=== PATIENT | male | born 1930 | race Caucasian/White ===

== ENCOUNTER 2021-02-26 19:34 | Inpatient (IN) | payer MEDICARE, BC ==
[2021-02-26 20:09] LABS: Glucose,Whole Blood 161 mg/dL (75-99)
[2021-02-26 20:48] LABS: Basophils # (A) 0.1 k/uL (0-0.2); Basophils % (A) 1 %; Eosinophils # (A) 0.3 k/uL (0-0.7); Eosinophils % (A) 3 %; HCT 41.9 % (39.0-53.0); HGB 13.4 gm/dL (13.0-17.5); Lymphocytes % (A) 18 %; MCH 28.7 pg (25.0-35.0); MCHC 31.9 g/dL (31.0-37.0); MCV 89.7 fL (80.0-100.0); Mean Platelet Volume 8.1; Monocytes # (A) 0.9 k/uL (0-1.0); Monocytes % (A) 8 %; Neutrophils # (A) 7.6 k/uL (1.3-7.7); Neutrophils % (A) 69 %; Platelet Count 266 k/uL (150-450); RBC 4.67 m/uL (4.30-5.90); RDW 13.9 % (11.5-15.5); WBC 11.1 k/uL (3.8-10.6)
[2021-02-26 20:56] LABS: Prothrombin Time 10.7 sec (9.0-12.0)
[2021-02-26 20:57] LABS: Partial Thromboplastin Time 25.9 sec (22.0-30.0)
[2021-02-26 20:58] LABS: Albumin 4.2 g/dL (3.5-5.0); Calcium 9.7 mg/dL (8.4-10.2); Potassium 4.4 mmol/L (3.5-5.1); Total Bilirubin 0.8 mg/dL (0.2-1.3); Total Protein 7.9 g/dL (6.3-8.2)
--- NOTE | 2021-02-26 21:16 | CT ---
EXAMINATION TYPE: CT brain wo con DATE OF EXAM: 02/26/2021 COMPARISON: None HISTORY: Neuro deficits, stroke suspected CT DLP: 1191.8 mGycm Automated exposure control for dose reduction was used. There is cerebral atrophy. There is no mass effect or midline shift. There is no sign of intracranial hemorrhage. Calvarium is intact. There is normal aeration of the mastoid sinuses. IMPRESSION: Mild atrophy. No acute intracranial abnormality.
--- NOTE | 2021-02-26 21:18 | XR ---
EXAMINATION TYPE: XR chest 2V DATE OF EXAM: 02/26/2021 COMPARISON: NONE HISTORY: Altered mental status TECHNIQUE: 2 view FINDINGS: There is pulmonary interstitial and airspace edema. There are chest leads. There is right c entral venous catheter with tip in the superior vena cava. IMPRESSION: There is pulmonary edema that could relate to heart failure or RDS.
--- NOTE | 2021-02-26 21:35 | CT ---
EXAMINATION TYPE: CT angio head neck DATE OF EXAM: 02/26/2021 COMPARISON: None HISTORY: Neuro deficits, stroke suspected CT DLP: 638.7 mGycm Automated exposure control for dose reduction was used. CONTRAST: Performed with IV Contrast, patient injected with 65 mL of Isovue 370. There are Three-D postprocessed images. There is extensive interstitial infiltrate in the upper lung conway. There is normal branching patter n of the great vessels on the aortic arch. There is arterial flow in both subclavian arteries. There is arterial flow in the common internal and external carotid arteries bilaterally. There is arterial flow in both vertebral arteries. There is subtotal occlusion of the proximal right internal carotid a rtery. More than 90% stenosis is seen. There is moderate plaque at the left carotid bifurcation and e stimated more than 90% stenosis as well. There is arterial flow in the vertebrobasilar artery system. There is arterial flow in the anterior m iddle and posterior cerebral arteries. There is no mass effect. There is no evidence of intracranial aneurysm or neovascularity. I see no evidence of intracranial hemodynamic arterial stenosis. There is normal enhancement of the venous sinuses. 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 Atherosclerotic vascular disease. Extensive pulmonary infiltrates. No significant angiographic intracranial abnormality.
--- NOTE | 2021-02-26 22:28 | ED ---
Neuro HPI - General Chief Complaint: Neuro Symptoms/Deficit Stated Complaint: possible stroke? Source: family Mode of arrival: wheelchair Limitations: no limitations - History of Present Illness Is the patient presenting with stroke symptoms?: Yes Initial Comments: 82-year-old male past medical history of diabetes, PE presents emergency department with complaints of vision changes and ataxia of his right upper extremity. He reports that the symptoms have been going on for the past 2 weeks intermittently and have gotten worse for the past 3 days. States that he has been dropping his drink cup and cannot use his cell phone due to the weakness in his right hand. He is right-hand dominant. Also reports to intermittent blurred vision no speech difficulties. Patient has had difficulty with ambulation. No history of strokes. No current symptoms at this time. Occasionally will have associated headache. Patient was on Coumadin up until 5 days ago. States he was taken off as he just recently had blood work for a TEG scan to evaluated whether he can come off of the coumadin. He denies any chest pain. No neck pain. No fevers. No other alleviating, precipitating or modifying factors - Related Data Home Medications: Home Medications Medication Instructions Recorded Confirmed Fluticasone Propion/Salmeterol 1 puff INHALATION RT-BID 02/26/21 02/26/21 [Wixela 250-50 Inhub] Loratadine [Claritin] 10 mg PO HS 02/26/21 02/26/21 Tamsulosin HCl [Flomax] 0.4 mg PO HS 02/26/21 02/26/21 Warfarin Sodium 7.5 mg PO HS 02/26/21 02/26/21 glipiZIDE [Glucotrol] 5 mg PO BID-W/MEALS 02/26/21 02/26/21 metFORMIN HCL [Glucophage] 500 mg PO BID 02/26/21 02/26/21 Allergies/Adverse Reactions: Allergies Allergy/AdvReac Type Severity Reaction Status Date / Time No Known Allergies Allergy Verified 02/26/21 21:33 Review of Systems ROS Statement: Those systems with pertinent positive or pertinent negative responses have been documented in the HPI. ROS Other: All systems not noted in ROS Statement are negative. General Exam Limitations: no limitations Stroke MDM - Lab Data Result diagrams: 02/26/21 20:39 02/26/21 20:39 Lab Results 02/26/21 02/26/21 02/26/21 Range/Units 20:07 20:39 20:39 WBC 11.1 H (3.8-10.6) k/uL RBC 4.67 (4.30-5.90) m/uL Hgb 13.4 (13.0-17.5) gm/dL Hct 41.9 (39.0-53.0) % MCV 89.7 (80.0-100.0) fL MCH 28.7 (25.0-35.0) pg MCHC 31.9 (31.0-37.0) g/dL RDW 13.9 (11.5-15.5) % Plt Count 266 (150-450) k/uL MPV 8.1 Neutrophils % 69 % Lymphocytes % 18 % Monocytes % 8 % Eosinophils % 3 % Basophils % 1 % Neutrophils # 7.6 (1.3-7.7) k/uL Lymphocytes # 2.0 (1.0-4.8) k/uL Monocytes # 0.9 (0-1.0) k/uL Eosinophils # 0.3 (0-0.7) k/uL Basophils # 0.1 (0-0.2) k/uL PT 10.7 (9.0-12.0) sec INR 1.0 (<1.2) APTT 25.9 (22.0-30.0) sec Sodium (137-145) mmol/L Potassium (3.5-5.1) mmol/L Chloride (98-107) mmol/L Carbon Dioxide (22-30) mmol/L Anion Gap mmol/L BUN (9-20) mg/dL Creatinine (0.66-1.25) mg/dL Est GFR (CKD-EPI)AfAm (>60 ml/min/1.73 sqM) Est GFR (CKD-EPI)NonAf (>60 ml/min/1.73 sqM) Glucose (74-99) mg/dL POC Glucose (mg/dL) 161 H (75-99) mg/dL POC Glu [employer] Administrator Developer ID Akshat Prajapati Calcium (8.4-10.2) mg/dL Total Bilirubin (0.2-1.3) mg/dL AST (17-59) U/L ALT (4-49) U/L Alkaline Phosphatase (38-126) U/L Troponin I (0.000-0.034) ng/mL Total Protein (6.3-8.2) g/dL Albumin (3.5-5.0) g/dL 02/26/21 02/26/21 Range/Units 20:39 20:39 WBC (3.8-10.6) k/uL RBC (4.30-5.90) m/uL Hgb (13.0-17.5) gm/dL Hct (39.0-53.0) % MCV (80.0-100.0) fL MCH (25.0-35.0) pg MCHC (31.0-37.0) g/dL RDW (11.5-15.5) % Plt Count (150-450) k/uL MPV Neutrophils % % Lymphocytes % % Monocytes % % Eosinophils % % Basophils % % Neutrophils # (1.3-7.7) k/uL Lymphocytes # (1.0-4.8) k/uL Monocytes # (0-1.0) k/uL Eosinophils # (0-0.7) k/uL Basophils # (0-0.2) k/uL PT (9.0-12.0) sec INR (<1.2) APTT (22.0-30.0) sec Sodium 137 (137-145) mmol/L Potassium 4.4 (3.5-5.1) mmol/L Chloride 102 (98-107) mmol/L Carbon Dioxide 23 (22-30) mmol/L Anion Gap 12 mmol/L BUN 24 H (9-20) mg/dL Creatinine 1.20 (0.66-1.25) mg/dL Est GFR (CKD-EPI)AfAm 62 (>60 ml/min/1.73 sqM) Est GFR (CKD-EPI)NonAf 54 (>60 ml/min/1.73 sqM) Glucose 168 H (74-99) mg/dL POC Glucose (mg/dL) (75-99) mg/dL POC Glu [employer] Administrator Developer ID Calcium 9.7 (8.4-10.2) mg/dL Total Bilirubin 0.8 (0.2-1.3) mg/dL AST 19 (17-59) U/L ALT 14 (4-49) U/L Alkaline Phosphatase 58 (38-126) U/L Troponin I <0.012 (0.000-0.034) ng/mL Total Protein 7.9 (6.3-8.2) g/dL Albumin 4.2 (3.5-5.0) g/dL - Medical Decision Making Upon arrival patient is placed into trauma 1. A thorough history and physical exam was performed. Patient has an NIH of 1 for some mild right upper extremity weakness. His onset of symptoms was greater than 3 days ago. IV is established laboratory studies were conducted. Patient is over for a CT of his head. CT angiography does demonstrate severe stenosis at the origin of the internal carotid arteries greater than 90%. The patient's reported symptoms a did recommend admission for vascular neurology consult. Spoke with Dr. Wen who agreed to admit the patient. Patient given an aspirin. He remained in st able condition awaiting a bed on the floor 02/26/21 22:28 EKG demonstrates sinus rhythm with a first-degree block. Rate of 74. MO interval 222. QRS 88. QTC of 424. Some baseline artifact. No acute ST segment elevations or depressions concerning for ischemia or infarction Past Medical History Past Medical History: Cancer, Diabetes Mellitus, Prostate Disorder, Pulmonary Embolus (PE) Additional Past Medical History / Comment(s): pulmonary fibrosis, allergies, bladder cancer History of Any Multi-Drug Resistant Organisms: None Reported Past Surgical History: Bladder Surgery Past Psychological History: Anxiety Smoking Status: Never smoker Past Alcohol Use History: None Reported Past Drug Use History: None Reported Course Vital Signs 02/26/21 02/26/21 02/26/21 19:50 21:30 22:00 Temperature 98.8 F Pulse Rate 88 67 78 Respiratory 20 18 18 Rate Blood Pressure 139/66 149/127 134/88 O2 Sat by Pulse 94 L 94 L 94 L Oximetry 02/26/21 23:45 Temperature Pulse Rate 70 Respiratory 18 Rate Blood Pressure 121/63 O2 Sat by Pulse 92 L Oximetry Disposition
[2021-02-27 06:15] LABS: Glucose,Whole Blood 108 mg/dL (75-99)
[2021-02-27] MEDS: INSULIN ASPART (NovoLOG) 100 UNIT/ML VIAL SQ SCH (06:36)
[2021-02-27] MEDS: SYMBICORT 80-4.5 MCG INHALER INHALATION SCH ×2 (07:14→19:38)
[2021-02-27] MEDS ORDERED: CLOPIDOGREL 75 MG TAB PO SCH (09:00)
[2021-02-27] MEDS ORDERED: ATORVASTATIN 40 MG TAB PO SCH (09:00)
[2021-02-27] MEDS ORDERED: CLOPIDOGREL 75 MG TAB PO STA (09:19)
--- NOTE | 2021-02-27 09:20 | P.CNNES ---
History of Present Illness Consult date: 02/27/21 Requesting physician: Roma Salvador Reason for Consult: acute visual disturbance, right hand weakness History of Present Illness: This is an 89-year-old right-handed dominant gentleman with history of diabetes mellitus, pulmonary fibrosis, bladder cancer, pulmonary embolism who presented emergency department on 02/26/2021 because of complaint of vision change and weakness of the right hand. Patient stated that his symptoms has been going on for the last 2 weeks intermittently and had noticed weakness of right hand recently. He noticed that he could not see out of the entire right eye lasting for few minutes about two weeks ago then resolved. Then later noticed he could not see out of half of left eye and last few hours possibly then resolved. In the past 3 days he noticed he is having weakness out of the right hand as well as numbness but has not resolved. He was dropping his drink and could not use his cell phone. He stated that he was on Coumadin up until 5 days ago prior to presented to the hospital and he had a TEG scan recently to evaluate whether he can come off of Coumadin. He could not tell me why he was on Coumadin. He states he has chronic weakness of lower extremities and uses a walker to get around. He denies any other neurological issues that is new otherwise. He denies being on antiplatelets or statin. He denies tobacco use, alcohol use or illicit drug use. Patient denies history of stroke in the past. Patient lives with his . Of note he states he had history of bladder cancer and PE in around 2016 and chemotherapy for his history of bladder cancer. Patient stated he was not sure of exact years of onset. Some other workup in the hospital consisted of: Initial vital signs as a blood pressure of 139/66, heart rate of 88, respiratory of 20, temperature of 98.8 Fahrenheit oral and pulse ox of 94% liters at room air. Initial white blood cell is 11.1 thousand otherwise the rest of CBC with pressure was unremarkable. Chemistry panel is the serum glucose is 168 otherwise the rest of the chem strip panel is unremarkable. Calcium is 9.7. De La Fuente virus is nondetected that. PT, PTT and the INR is within normal limits. CT of the head is reported as mild atrophy. No acute intracranial abnormality. I personally reviewed the CT of the head and I do not see any receipt any acute or subacute ischemia and there is no intraperitoneal hemorrhage noted. CT angiography of the head and neck was reported as there is severe stenosis of both internal carotid arteries that is estimated more than 90%. Atherosclerotic vascular disease. Extensive pulmonary infiltrates. Per the ED note the patient had the NIH stroke scale of 14 mild right upper extremity weakness. No IV TPA since onset of symptoms is more than 4.5 hours. Review of Systems Review of system: The 12 point system was reviewed and apparent positive and negative per HPI. Past Medical History Past Medical History: Cancer, Diabetes Mellitus, Prostate Disorder, Pulmonary Embolus (PE) Additional Past Medical History / Comment(s): pulmonary fibrosis, allergies, bladder cancer History of Any Multi-Drug Resistant Organisms: None Reported Past Surgical History: Bladder Surgery Past Psychological History: Anxiety Smoking Status: Never smoker Past Alcohol Use History: None Reported Past Drug Use History: None Reported Medications and Allergies Home Medications Medication Instructions Recorded Confirmed Type Fluticasone Propion/Salmeterol 1 puff INHALATION RT-BID 02/26/21 02/26/21 Histor y [Wixela 250-50 Inhub] Loratadine [Claritin] 10 mg PO HS 02/26/21 02/26/21 History Tamsulosin HCl [Flomax] 0.4 mg PO HS 02/26/21 02/26/21 History Warfarin Sodium 7.5 mg PO HS 02/26/21 02/26/21 History glipiZIDE [Glucotrol] 5 mg PO BID-W/MEALS 02/26/21 02/26/21 History metFORMIN HCL [Glucophage] 500 mg PO BID 02/26/21 02/26/21 History Allergies Allergy/AdvReac Type Severity Reaction Status Date / Time No Known Allergies Allergy Verified 02/26/21 21:33 Physical Examination - Vital Signs Vital Signs: Vital Signs Temp Pulse Resp BP Pulse Ox 02/27/21 07:14 94 L 02/27/21 06:34 97.7 F 57 L 15 99/44 98 02/27/21 05:00 97.4 F L 69 20 125/61 93 L 02/26/21 23:45 70 18 121/63 92 L 02/26/21 22:00 78 18 134/88 94 L 02/26/21 21:30 67 18 149/127 94 L 02/26/21 19:50 98.8 F 88 20 139/66 94 L Intake and Output 02/26/21 02/27/21 02/27/21 22:59 06:59 14:59 Other: Weight 94.347 kg GENERAL: The patient is lying in bed and is not in acute distress. CHEST: The heart rate is regular rate rhythm. No murmurs to auscultation. No carotid bruit bilaterally. LUNG: Clear to auscultation bilaterally no wheezing noted throughout. Not labored breathing. ABDOMEN/GI: Bowel sounds present in all 4 quadrants. No tenderness to palpation throughout. NEUROLOGICAL: Higher mental function: The patient is awake, alert, oriented to self, place and time. Patient is following commands. No aphasia and no neglect. Cranial nerves: The pupils are round, equal and reactive to light. Visual conway: Right upper quadrant defect to confrontation (done twice) over the right eye. Extraocular movement is intact no nystagmus is noted. Facial sensation is normal to touch throughout. The facial strength is normal throughout. Hearing is moderately to severely decreased bilaterally to hand rub. Tongue is midline and moved [id number] without any difficulty. No dysarthria is noted. Shoulder shrug is normal bilaterally. Motor: The strength: Right hand is 4+. Otherwise rest of uppers are 5/5. Lowers is able to raise above gravity and no focality (has chronic weakness and uses walker). Normal tone and bulk. Cerebellum: Normal finger to nose bilaterally. Sensation: Sensation is normal to touch throughout. Reflexes (right/left):2+ throughout. Ankles are 1+. Plantars are mute bilaterally. Results - Laboratory Findings CBC and BMP: 02/26/21 20:39 02/26/21 20:39 Abnormal Lab Findings: Abnormal Labs 02/26/21 02/26/21 02/26/21 20:07 20:39 20:39 WBC 11.1 H BUN 24 H Glucose 168 H POC Glucose (mg/dL) 161 H 02/27/21 06:13 WBC BUN Glucose POC Glucose (mg/dL) 108 H Assessment and Plan Assessment: Right hand weakness over past 3 days and transient visual loss (first right eye then left eye) about 2 weeks ago: Due to acute to subacute ischemic stroke. Etiology is symptomatic bilateral carotid. No IV tpa since onset >4.5 (patient stated he had symptoms for past 2 weeks). 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 I loaded the patient on Plavix 300mg once and Vascular surgery started the patient on Plavix 75mg daily. Patient to be on dual antiplatelets of aspirin 325 and Plavix 75 mg daily for now. Patient was also started Lipitor 40 mg daily and I increase it to 80 mg daily. I ordered MRI of the brain and 2-D echo and carotid duplex. Vascular surgery team is consulted Ordered TSH and hemoglobin A1c. Lipid panels ordered and is pending PT, OT and FINANCIAL SALES REPRESENTATIVE is consulted that. Continue neuro checks Patient is on the cardiac monitoring We'll defer the rest of medical management to the primary team. Plan is discussed with the patient, vascular surgery team and his nurse. Thank you for the consultation. José Miguel Kerr M.D. Neuro-Hospitalist Time with Patient: Greater than 30
--- NOTE | 2021-02-27 09:22 | US ---
EXAMINATION TYPE: US carotid duplex BILAT DATE OF EXAM: 02/27/2021 COMPARISON: NONE CLINICAL HISTORY: carotid stenosis. Right side weakness, vision changes EXAM MEASUREMENTS: RIGHT: Peak Systolic Velocity (PSV) cm/sec ----- Right CCA: 73.4 ----- Right ICA: 233 ----- Right ECA: 164 ICA/CCA ratio: 3.2 RIGHT: End Diastole cm/sec ----- Right CCA: 12.3 ----- Right ICA: 48.5 ----- Right ECA: 0.0 LEFT: Peak Systolic Velocity (PSV) cm/sec ----- Left CCA: 55.5 ----- Left ICA: 244 ----- Left ECA: 328 ICA/CCA ratio: 4.4 LEFT: End Diastole cm/sec ----- Left CCA: 6.7 ----- Left ICA: 74.8 ----- Left ECA: 0.0 VERTEBRALS (direction of flow): Right Vertebral: Unable to visualize Left Vertebral: Antegrade Rhythm: Normal Heterogeneous plaque bilaterally with significant elevated velocities bilaterally turbulent flow is evident. Velocity measurements suggest stenosis. 70% bilateral carotid bifurcations. IMPRESSION: 1. Severe bilateral internal carotid artery stenosis at the bifurcations. Stenosis greater than 70% b ilaterally. Criteria for Assigning % of Stenosis / Diameter reduction (Estimation based on the indirect measurements of the internal carotid artery velocities (ICA PSV). 1. Normal (no stenosis)=ICA PSV < 125 cm/s: ratio < 2.0: ICA EDV<40 cm/s. 2. Less than 50% stenosis=ICA PSV < 125 cm/s: ratio < 2.0: ICA EDV<40 cm/s. 3. 50 to 69% stenosis=ICA PSV of 125 to 230 cm/s: ration 2.0 ? 4.0: ICA EDV 40-100 cm/s. 4. Greater than 70% stenosis to near occlusion= ICA PSV > 230 cm/s: ratio > 4.0: ICA EDV > 100 cm/s. 5. Near occlusion= ICA PSV velocities may be low or undetectable: variable ratio and ICA EDV. 6. Total occlusion=unable to detect flow.
[2021-02-27] MEDS: ATORVASTATIN 80 MG TAB PO SCH (10:06)
[2021-02-27] MEDS: HEPARIN SODIUM,PORCINE/PF 5,000 UNIT/0.5 ML SYRINGE SQ SCH (10:06)
--- NOTE | 2021-02-27 10:39 | HP ---
HISTORY AND PHYSICAL This is an 89-year-old white male who presents to the emergency room with complaints of visual changes and in the right upper extremity, worsened over the past 2 weeks. He is dropping things he normally and usually does not drop. He is [id number]. Intermittent blurred vision. No speech difficulties. The patient was on Coumadin until 5 days ago when he was taken off. He had some blood work for a tagged scan to see if he could come off Coumadin. Denies any fever or chills. Home medicines 10 mg daily, 250/50, DuoNeb b.i.d., Flomax 0.4 daily, warfarin 7.5 daily, glipizide 5 mg b.i.d., metformin 500 b.i.d. ALLERGIES: NEGATIVE. REVIEW OF SYSTEMS: Fourteen-point review of systems otherwise negative. Labs are reviewed. CTA angiography of the neck shows over 90% stenosis bilateral internal carotid arteries. ASSESSMENT: 1. Transient ischemic attack. 2. Severe carotid stenosis. 3. First-degree heart block. 4. Diabetes mellitus. 5. Hypertension. Get Vascular Surgery to see him as well as Neurology and Cardiology for TIA and carotid stenosis. Continue current home medications for BPH, etc. Diabetes Accu-Chek protocol. Prognosis guarded. MMODL / IJN: [id number] /
--- NOTE | 2021-02-27 10:42 | ECHOF ---
Referral Reason:stroke MEASUREMENTS -------- HEIGHT: 182.9 cm WEIGHT: 94.3 kg BP: 99/44 RVIDd: 2.6 cm (< 3.3) IVSd: 1.2 cm (0.6 - 1.1) LVIDd: 3.8 cm (3.9 - 5.3) LVPWd: 1.3 cm (0.6 - 1.1) IVSs: 1.5 cm LVIDs: 2.5 cm LVPWs: 1.3 cm LAESV Index (A-L): 22.95 ml/m Ao Diam: 3.8 cm (2.0 - 3.7) AV Cusp: 1.3 cm (1.5 - 2.6) MV EXCURSION: 14.631 mm (> 18.000) MV EF SLOPE: 38 mm/s (70 - 150) EPSS: 1.4 cm MV E Kyaw: 0.85 m/s MV DecT: 236 ms MV A Kyaw: 1.00 m/s MV E/A Ratio: 0.85 AR PHT: 672 ms RAP: 5.00 mmHg RVSP: 39.55 mmHg FINDINGS -------- Sinus rhythm. This was a technically adequate study. The left ventricular size is normal. There is mild concentric left ventricular hypertrophy. Overa ll left ventricular systolic function is normal with, an EF between 55 - 60 %. The right ventricle is normal in size. Normal LA size by volume 22+/-6 ml/m2. The right atrial size is normal. Interatrial and interventricular septum intact. There is moderate aortic valve sclerosis. There is mild aortic regurgitation. There is no evidenc e of aortic stenosis. There is trace mitral regurgitation. Mild tricuspid regurgitation present. There is borderline pulmonary artery hypertension. The righ t ventricular systolic pressure, as measured by Doppler, is 39.55mmHg. There is no pulmonic regurgitation present. 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 Echo free space represents a pericardial fat pad. There is no pericardial effusion. CONCLUSIONS -------- 1. The left ventricular size is normal. 2. There is mild concentric left ventricular hypertrophy. 3. Overall left ventricular systolic function is normal with, an EF between 55 - 60 %. 4. There is moderate aortic valve sclerosis. 5. There is mild aortic regurgitation. 6. There is trace mitral regurgitation. 7. Mild tricuspid regurgitation present. 8. There is borderline pulmonary artery hypertension. 9. The right ventricular systolic pressure, as measured by Doppler, is 39.55mmHg. 10. The aortic root is dilated measuring {3.8 cm}. AUTOMOTIVE WHOLESALE PARTS ADVISOR: Alice Antonio RDCS
--- NOTE | 2021-02-27 13:43 | P.GSCN ---
<Jenny Rawls - Last Filed: 02/27/21 13:31> History of Present Illness Consult date: 02/27/21 Reason for Consult: Carotid stenosis Requesting physician: Roma Salvador History of present illness: This is a pleasant 82-year-old male with a past medical history of diabetes mellitus, pulmonary fibrosis, bladder cancer, pulmonary embolism who had presented to the emergency department yesterday with complaints of vision changes and weakness of the right hand. Patient states his symptoms have been going on for the last 2 weeks intermittently with right handed weakness more recently. He states that he first started with his right eye that had been lasting for a few minutes where he could not see out of it and then it had resolved. This had been going on for the last 2 weeks. He then states he could not see on a half of his left eye that had lasted for a few hours and then resolve. Over the past 3 days he is becoming more weakness in his right upper extremity with numbness and tingling which has not resolved at this time. He w as having difficulty with holding his cell phone and his he does admit to taking Coumadin which he stopped 5 days ago but he is unsure why he is been on Coumadin. He denies tobacco use or any illicit drug use. He denies any previous history of stroke and no similar symptoms in the past. He has not been following anybody for his carotid arteries. He had a CT of the head that was reported as mild atrophy. With no acute intracranial abnormality. He also had a CT angiogram gram of the head and neck with reported severe stenosis of both internal carotid arteries estimated more than 90%. Arthrosclerotic vascular disease. Extensive pulmonary infiltrates. He is not having any visual disturb ances, he continues to have right upper extremity weakness. He denies any shortness of breath or chest pain, nausea vomiting or abdominal pain. Review of Systems A 14 point review systems was completed all pertinent positives and negatives as stated in the HPI Past Medical History Past Medical History: Cancer, Diabetes Mellitus, Prostate Disorder, Pulmonary Embolus (PE) Additional Past Medical History / Comment(s): pulmonary fibrosis, allergies, bladder cancer History of Any Multi-Drug Resistant Organisms: None Reported Past Surgical History: Bladder Surgery Past Psychological History: Anxiety Smoking Status: Never smoker Past Alcohol Use History: None Reported Past Drug Use History: None Reported Medications and Allergies Home Medications Medication Instructions Recorded Confirmed Type Fluticasone Propion/Salmeterol 1 puff INHALATION RT-BID 02/26/21 02/26/21 History [Wixela 250-50 Inhub] Loratadine [Claritin] 10 mg PO HS 02/26/21 02/26/21 History Tamsulosin HCl [Flomax] 0.4 mg PO HS 02/26/21 02/26/21 History Warfarin Sodium 7.5 mg PO HS 02/26/21 02/26/21 History glipiZIDE [Glucotrol] 5 mg PO BID-W/MEALS 02/26/21 02/26/21 History metFORMIN HCL [Glucophage] 500 mg PO BID 02/26/21 02/26/21 History Allergies Allergy/AdvReac Type Severity Reaction Status Date / Time No Known Allergies Allergy Verified 02/26/21 21:33 Surgical - Exam Vital Signs Temp Pulse Resp BP Pulse Ox 98.8 F 88 20 139/66 94 L 02/26/21 19:50 02/26/21 19:50 02/26/21 19:50 02/26/21 19:50 02/26/21 19:50 General appearance: The patient is alert, oriented, appears in no acute distress. HET: Head is normocephalic and atraumatic. Pupils are equal and reactive. Neck: Supple without lymphadenopathy. Trachea midline. Heart: S1 S2. Regular rate and rhythm. Lungs: No crackles or wheezes are heard. Abdomen: Soft, nontender, nondistended. Extremities: Normal skin color and turgor. Neurological: She is alert and oriented 3. He has facial symmetry, speech is fluent, he is able to answer questions appropriately and follow commands. He does have some right upper extremity weakness especially in his grass. Results - Labs 02/26/21 20:39 02/26/21 20:39 Abnormal Lab Results - Last 24 Hours (Table) 02/26/21 02/26/21 02/26/21 Range/Units 20:07 20:39 20:39 WBC 11.1 H (3.8-10.6) k/uL BUN 24 H (9-20) mg/dL Glucose 168 H (74-99) mg/dL POC Glucose (mg/dL) 161 H (75-99) mg/dL 02/27/21 Range/Units 06:13 WBC (3.8-10.6) k/uL BUN (9-20) mg/dL Glucose (74-99) mg/dL POC Glucose (mg/dL) 108 H (75-99) mg/dL Diabetes panel 02/26/21 Range/Units 20:39 Sodium 137 (137-145) mmol/L Potassium 4.4 (3.5-5.1) mmol/L Chloride 102 (98-107) mmol/L Carbon Dioxide 23 (22-30) mmol/L BUN 24 H (9-20) mg/dL Creatinine 1.20 (0.66-1.25) mg/dL Glucose 168 H (74-99) mg/dL Calcium 9.7 (8.4-10.2) mg/dL AST 19 (17-59) U/L ALT 14 (4-49) U/L Alkaline Phosphatase 58 (38-126) U/L Total Protein 7.9 (6.3-8.2) g/dL Albumin 4.2 (3.5-5.0) g/dL Calcium panel 02/26/21 Range/Units 20:39 Calcium 9.7 (8.4-10.2) mg/dL Albumin 4.2 (3.5-5.0) g/dL Pituitary panel 02/26/21 Range/Units 20:39 Sodium 137 (137-145) mmol/L Potassium 4.4 (3.5-5.1) mmol/L Chloride 102 (98-107) mmol/L Carbon Dioxide 23 (22-30) mmol/L BUN 24 H (9-20) mg/dL Creatinine 1.20 (0.66-1.25) mg/dL Glucose 168 H (74-99) mg/dL Calcium 9.7 (8.4-10.2) mg/dL Adrenal panel 02/26/21 Range/Units 20:39 Sodium 137 (137-145) mmol/L Potassium 4.4 (3.5-5.1) mmol/L Chloride 102 (98-107) mmol/L Carbon Dioxide 23 (22-30) mmol/L BUN 24 H (9-20) mg/dL Creatinine 1.20 (0.66-1.25) mg/dL Glucose 168 H (74-99) mg/dL Calcium 9.7 (8.4-10.2) mg/dL Total Bilirubin 0.8 (0.2-1.3) mg/dL AST 19 (17-59) U/L ALT 14 (4-49) U/L Alkaline Phosphatase 58 (38-126) U/L Total Protein 7.9 (6.3-8.2) g/dL Albumin 4.2 (3.5-5.0) g/dL - Imaging Comments: As stated in the HPI Carotid ultrasound shows right ICA PSV 233, ICA/CCA ratio 3.2 left ICA PSV 244 ICA/CCA ratio 4.4 with reported severe bilateral internal carotid artery stenosis at the bifurcations. Stenosis greater than 70% bilaterally Assessment and Plan Assessment: 1. Visual changes 2. Right upper extremity weakness 3. Severe symptomatic bilateral ICA stenosis, estimated greater than 90% bilaterally per CT angiogram Plan: 1. Recommend aspirin, Plavix, statin 2. Requesting discussed be made for CT angiogram head and neck 3. Agree with ordering carotid ultrasound 4. Was discussed with patient recommendation for vascular surgical intervention on carotid arteries likely TCAR, further recommendations forthcoming Thank you for this consultation, and allowing us take part in the plan of care of your patient during his hospital stay. The impression and plan of care has been dictated as directed. Dr. Ramirez I performed a history and examination of this patient, discussed the same with the dictator. I agree with the dictator's note ,documented as a scribe. Any additional findings or plans will be noted. <Ras Ramirez - Last Filed: 02/27/21 19:06> Surgical - Exam Vital Signs Temp Pulse Resp BP Pulse Ox 98.8 F 88 20 139/66 94 L 02/26/21 19:50 02/26/21 19:50 02/26/21 19:50 02/26/21 19:50 02/26/21 19:50 Results - Labs 02/26/21 20:39 02/26/21 20:39 Abnormal Lab Results - Last 24 Hours (Table) 02/26/21 02/26/21 02/26/21 Range/Units 20:07 20:39 20:39 WBC 11.1 H (3.8-10.6) k/uL BUN 24 H (9-20) mg/dL Glucose 168 H (74-99) mg/dL POC Glucose (mg/dL) 161 H (75-99) mg/dL Hemoglobin A1c (0.0-6.0) % 02/26/21 02/27/21 Range/Units 20:39 06:13 WBC (3.8-10.6) k/uL BUN (9-20) mg/dL Glucose (74-99) mg/dL POC Glucose (mg/dL) 108 H (75-99) mg/dL Hemoglobin A1c 7.6 H (0.0-6.0) % Diabetes panel 02/26/21 02/26/21 Range/Units 20:39 20:39 Sodium 137 (137-145) mmol/L Potassium 4.4 (3.5-5.1) mmol/L Chloride 102 (98-107) mmol/L Carbon Dioxide 23 (22-30) mmol/L BUN 24 H (9-20) mg/dL Creatinine 1.20 (0.66-1.25) mg/dL Glucose 168 H (74-99) mg/dL Hemoglobin A1c 7.6 H (0.0-6.0) % Calcium 9.7 (8.4-10.2) mg/dL AST 19 (17-59) U/L ALT 14 (4-49) U/L Alkaline Phosphatase 58 (38-126) U/L Total Protein 7.9 (6.3-8.2) g/dL Albumin 4.2 (3.5-5.0) g/dL Thyroid panel 02/26/21 Range/Units 20:39 TSH 3.430 (0.465-4.680) mIU/L Calcium panel 02/26/21 Range/Units 20:39 Calcium 9.7 (8.4-10.2) mg/dL Albumin 4.2 (3.5-5.0) g/dL Pituitary panel 02/26/21 02/26/21 Range/Units 20:39 20:39 Sodium 137 (137-145) mmol/L Potassium 4.4 (3.5-5.1) mmol/L Chloride 102 (98-107) mmol/L Carbon Dioxide 23 (22-30) mmol/L BUN 24 H (9-20) mg/dL Creatinine 1.20 (0.66-1.25) mg/dL Glucose 168 H (74-99) mg/dL Calcium 9.7 (8.4-10.2) mg/dL TSH 3.430 (0.465-4.680) mIU/L Adrenal panel 02/26/21 Range/Units 20:39 Sodium 137 (137-145) mmol/L Potassium 4.4 (3.5-5.1) mmol/L Chloride 102 (98-107) mmol/L Carbon Dioxide 23 (22-30) mmol/L BUN 24 H (9-20) mg/dL Creatinine 1.20 (0.66-1.25) mg/dL Glucose 168 H (74-99) mg/dL Calcium 9.7 (8.4-10.2) mg/dL Total Bilirubin 0.8 (0.2-1.3) mg/dL AST 19 (17-59) U/L ALT 14 (4-49) U/L Alkaline Phosphatase 58 (38-126) U/L Total Protein 7.9 (6.3-8.2) g/dL Albumin 4.2 (3.5-5.0) g/dL Assessment and Plan Plan: Reviewed CTA with patient as well as neurology. Patient will require intervention first for his left carotid followed by his right due to the fact that he is symptomatic from both. He is right handed and recently had weakness of the right hand and therefore we will perform the left carotid first. He was also started on plavix and aspirin which he will continue up to his surgery which will likely be next Friday.
--- NOTE | 2021-02-27 14:45 | MR ---
"EXAMINATION TYPE: MR brain wo con DATE OF EXAM: 02/27/2021 COMPARISON: CT brain 02/26/2021 HISTORY: Visual disturbance. Stroke CONTRAST: Performed utilizing 0 mL intravenous Gadavist gadolinium contrast. TECHNIQUE: Multiplanar, multiecho imaging on a 3.0 Susy magnet is performed through the brain. Stud y is not performed within 24 hours of arrival to the hospital. The craniovertebral junction is normal. The pituitary is normal. Diffusion-weighted imaging is performed. There are scattered cortical hyperintensities within the le ft occipital lobe. A more focal area is along the cortex of the occipital lobe gyrus. Scattered punct ate hyperintensities are within the posterior left parietal cortex. Findings can be compatible with a cute cortical infarcts. Consider venous infarcts within the differential There are some additional hyperintensities within the deep white matter identified on the inversion r ecovery weighted sequences. This may be more chronic white matter ischemic changes. There is some additional mild periventricular white matter hyperintensity which is nonspecific but co uld be related to chronic white matter ischemic changes. Ventricles and sulci are prominent for the patient age. IMPRESSIONS: 1. Scattered acute cortical infarcts within the left occipital and posterior left parietal lobes. 2. Mild chronic appearing periventricular white matter ischemic change with atrophy. A [place] level critical message alert has been initiated for Prashant Live MD via the [employer] 36 0 | Critical Results System on 02/27/2021 2:43 PM. This message alert has been sent to Prashant Live MD via the preferences provided by the clinician for the receipt of Radiology Critical Findings. [facility] ID [id number]."
[2021-02-27] MEDS ORDERED: TAMSULOSIN 0.4 MG CAP.ER.24H PO SCH (21:00)
[2021-02-27] MEDS ORDERED: LORATADINE 10 MG TAB PO SCH (21:00)
[2021-02-28 00:22] LABS: Glucose,Whole Blood 137 mg/dL (75-99)
[2021-02-28] MEDS: INSULIN ASPART (NovoLOG) 100 UNIT/ML VIAL SQ SCH ×3 (00:22→11:09)
[2021-02-28] MEDS: HEPARIN SODIUM,PORCINE/PF 5,000 UNIT/0.5 ML SYRINGE SQ SCH ×2 (00:34→11:10)
[2021-02-28] MEDS: SYMBICORT 80-4.5 MCG INHALER INHALATION SCH (08:53)
[2021-02-28] MEDS ORDERED: ASPIRIN 325 MG TAB PO SCH (09:00)
[2021-02-28] MEDS ORDERED: CLOPIDOGREL 75 MG TAB PO SCH (09:00)
--- NOTE | 2021-02-28 10:43 | CONS ---
CONSULTATION CHIEF COMPLAINT: Sudden onset of visual disturbances. Prashant is an 89-year-old gentleman with history of pulmonary fibrosis, pulmonary embolism and tjc-zngjzvo-rjqndeccj diabetes who presented to hospital with sudden loss of vision in the right eye and subsequently in the left eye. He has not been taking good care of himself, as his son is admitted to [facility] with severe COVID and is not doing particularly well. His vision has improved since coming to hospital, and at the time of my evaluation he states that it is almost back to normal. The patient is on Coumadin because of history of pulmonary embolism, but the INR was subtherapeutic at 1 on his presentation. Troponin is negative and the coronavirus test is also negative. He was found to have bilateral carotid stenosis and has since been evaluated by a vascular surgeon. He does not have any other focal neurological deficits. He denies chest pain, has stable shortness of breath and is currently on home O2. PAST MEDICAL HISTORY: Significant for pulmonary embolism, history of bladder cancer, dku-[id number]-xojvgmatd diabetes. MEDICATIONS: Medications at home include Coumadin, Flomax 0.4 mg daily, Claritin, fluticasone, Glucophage 500 b.i.d., Glucotrol 5 b.i.d. ALLERGIES: There are NO KNOWN DRUG ALLERGIES. FAMILY HISTORY: Negative for premature coronary artery disease. SOCIAL HISTORY: Negative for smoking, EtOH abuse or drug abuse. REVIEW OF SYSTEMS: HEENT is unremarkable. CARDIAC: As described above. RESPIRATORY: Negative. GI: Negative. GENITOURINARY: Negative. ALLERGY/IMMUNOLOGY: Negative. SKIN: Negative. MUSCULOSKELETAL: Significant for arthritis. PSYCHOSOCIAL: Negative. ENDOCRINE: Negative. DERMATOLOGY: Negative. CONSTITUTIONAL: Negative. ONCOLOGICAL: Negative. ANIMAL GROOMER: Significant for hearing impairment. PHYSICAL EXAMINATION: Heart rate is 77 beats per minute. Blood pressure is , respiratory rate is 16. Oxygen saturation is 93% on 3 L. There is no jugular venous distention. Carotid upstroke is diminished. There is no bruit. Chest exam reveals diminished air entry at the bases. Heart exam reveals first and second heart sounds, systolic murmur at the apex. Abdomen is soft. Examination of extremities did not reveal any edema. Peripheral pulses are palpable. An echocardiogram on this admission revealed normal LV systolic function with mild aortic regurgitation and mild pulmonary hypertension. EKG shows sinus rhythm, first- degree AV block and nonspecific ST-T wave changes. Carotid duplex study showed severe bilateral internal carotid artery stenosis. An MRI of the brain showed scattered acute cortical infarct within the left occipital and left parietal lobes. ASSESSMENT: 1. Cerebrovascular accident with loss of vision. 2. Severe bilateral carotid stenosis. 3. History of pulmonary embolism. 4. History of [id number] diabetes. PLAN: Patient is currently being treated with aspirin, Plavix and Lipitor, which we will continue. It is unclear if patient still needs the Coumadin that was started many years ago for pulmonary embolism. We will follow the patient with interest throughout his stay. Because of problems with the [employer] system this morning, we are not able to use it; hence the spot washer system is being he used. MMODL / IJN: [id number] /
[2021-02-28] MEDS: ATORVASTATIN 80 MG TAB PO SCH (10:48)
[2021-02-28 11:01] LABS: Glucose,Whole Blood 254 mg/dL (75-99)
--- NOTE | 2021-02-28 11:08 | P.PN ---
Subjective Progress Note Date: 02/28/21 The patient is seen at bedside and feels he is somewhat better compared to yesterday. He continues to have weakness of the right hand and feels having dexterity issues with the right hand. He feels numbness over the right hand is improving. Otherwise denies any new neurological problems. Objective - Vital Signs Vital signs: Vital Signs Temp 97.1 F L 02/28/21 10:00 Pulse 72 02/28/21 10:00 Resp 16 02/28/21 10:00 BP 113/60 02/28/21 10:00 Pulse Ox 95 02/28/21 10:00 Intake & Output 02/27/21 02/28/21 02/28/21 18:59 06:59 18:59 Weight 94.347 kg - Exam GENERAL: The patient is lying in bed and is not in acute distress. NEUROLOGICAL: Higher mental function: The patient is awake, alert, oriented to self, place and time. Patient is following commands. No aphasia and no neglect. Cranial nerves: The pupils are round, equal and reactive to light. Visual conway: are full to confrontation throughout. Extraocular movement is intact no nystagmus is noted. Facial sensation is normal to touch throughout. The facial strength is normal throughout. Hearing is moderately to severely decreased bilaterally to hand rub. Tongue is midline and moved [id number] without any difficulty. No dysarthria is noted. Shoulder shrug is normal bilaterally. Motor: The strength: Right hand is 4+. Having dexterity problems with right hand. Otherwise rest of uppers are 5/5. Lowers is able to raise above gravity and no focality (has chronic weakness and uses walker). Normal tone and bulk. Cerebellum: Normal finger to nose bilaterally. Sensation: Sensation is normal to touch throughout. Reflexes (right/left):2+ throughout. Ankles are 1+. Plantars are mute bilaterally. WORK-UP: CT of the head is reported as mild atrophy. No acute intracranial abnormality. I personally reviewed the CT of the head and I do not see any receipt any acute or subacute ischemia and there is no intraperitoneal hemorrhage noted. CT angiography of the head and neck was reported as there is severe stenosis of both internal carotid arteries that is estimated more than 90%. Atherosclerotic vascular disease. Extensive pulmonary infiltrates. Carotid duplex is reported as severe bilateral internal carotid artery stenosis at the bifurcations. Stenosis greater than 70%. MRI of the brain is reported as scattered acute cortical infarct within the left occipital and posterior left parietal lobe. Mild chronic-appearing periventricular white matter ischemic changes with atrophy. 2-D echo was reported as mild concentric liver described atrophy. Ejection fraction of 55-60%. Moderate aortic valve sclerosis at. Normal left atrial size by volume. Hemoglobin A1c is 7.6. TSH is 3.43. - Labs CBC & Chem 7: 02/26/21 20:39 02/26/21 20:39 Labs: Abnormal Lab Results - Last 24 Hours (Table) 02/28/21 Range/Units 00:21 POC Glucose (mg/dL) 137 H (75-99) mg/dL Assessment and Plan Assessment: * Acute to subacute ischemic stroke over the left occipital and parietal (has Right hand weakness over past 3 days and transient visual loss (first right eye then left eye) about 2 weeks ago): Due to acute to subacute ischemic stroke. Etiology is symptomatic bilateral carotid. No IV tpa since onset >4.5 (patient stated he had symptoms for past 2 weeks). * Bilateral ICA stenosis greater than 90% per CTA and >70% per carotid duplex * Diabetes mellitus (recent HbA1c is 7.6) * History of pulmonary fibrosis * History of bladder cancer s/p chemotherapy * History of pulmonary embolism * History of coumadin use (unsure why he was on it and was stopped 5 days ago) Plan: Patient was started on ASA 325mg daily and Plavix 75mg daily (started new during this hospital visit). In the ED the patient was on aspirin 325 daily. Continue Lipitor 80mg qhs daily (had carotid stenosis that is significant). Vascular surgery team is consulted. They recommend intervention on Left ICA first then Right ICA later and likely will be done Next Friday. Pending Lipid panel PT, OT and AUGER MACHINE OFFBEARER are consulted. Continue neuro checks Cardiology is consulted by primary team. Patient is on the cardiac monitoring We'll defer the rest of medical management to the primary team. Upon discharge, the patient needs to follow-up with neurologist within 1-2 weeks. For DVT prophylaxis: On subq heparin 5000U every 12 hours. Plan is discussed with the patient and his who is at bedside. José Miguel Kerr M.D. Neuro-Hospitalist Time with Patient: Less than 30
[2021-02-28 11:24] LABS: Chol/HDL Ratio 6.23 Ratio; LDL Cholesterol,Calculated 135.8 mg/dL (0.0-131.0)
[2021-02-28 13:26] VITALS: RESP 18; TEMP 97.5
[2021-02-28 13:30] VITALS: BP 106/57
[2021-02-28 13:34] LABS: Glucose,Whole Blood 169 mg/dL (75-99)
[2021-02-28 13:35] VITALS: PULSE 67
--- NOTE | 2021-02-28 15:55 | PN ---
PROGRESS NOTE This 89-year-old is somewhat better compared to yesterday. Confused. Had weakness, right upper hand. Dexterity issues with his right hand. Has some numbness of his right hand which is improving. Discussed the case with the family caseworker in the ER. Apparently patient wants to be discharged home and come back next week for carotid surgery, severe bilateral internal carotid artery stenosis. Echo shows normal ejection fraction. A1c is 7.6. His thyroid is 3.43. ASSESSMENT: 1. Acute subacute ischemic stroke, left occipital parietal. 2. Right hand weakness. 3. Bilateral carotid stenosis. No IV tPA was given. It has been over 4-1/2 hours since his symptoms that started 2 weeks ago. 4. Diabetes mellitus. 5. Pulmonary fibrosis. 6. History of bladder cancer. 7. Pulmonary embolism. 8. History of Coumadin use. Stopped 5 days ago. Started on aspirin and Plavix, Lipitor 80. He has been cleared from Cardiology for surgery, and Neurology. He will be deferred to go home tomorrow and for surgery. Please see discharge orders. MMODL / IJN: [id number] /
--- NOTE | 2021-02-28 16:13 | P.PN ---
Subjective Progress Note Date: 02/28/21 She was seen and examined is a follow-up for hemodynamically significant bilateral ICA stenosis. Today he states his right upper extremity weakness has improved. He has no visual deficits and no reported other focal deficits. He is alert and oriented 3. His was at the bedside. Carotid ultrasound was performed showing right ICA to 33 with an ICA/CCA ratio 3.2 left ICA PSV to 44 ICA/CCA ratio 4.4. Report states severe bilateral internal carotid artery stenosis at the bifurcations greater than 70% bilaterally. Objective - Vital Signs Vital signs: Vital Signs Temp 97.5 F L 02/28/21 10:00 Pulse 67 02/28/21 13:33 Resp 18 02/28/21 13:33 BP 106/57 02/28/21 12:00 Pulse Ox 95 02/28/21 13:33 Intake & Output 02/27/21 02/28/21 02/28/21 18:59 06:59 18:59 Weight 94.347 kg - Exam General appearance: The patient is alert, oriented, appears in no acute distress. HET: Head is normocephalic and atraumatic. Pupils are equal and reactive. Neck: Supple without lymphadenopathy. Trachea midline. Extremities: Normal skin color and turgor. No cyanosis, rash, ulceration, clubbing, or edema. . Neurological: No focal deficits. Alert and oriented 3. - Labs CBC & Chem 7: 02/26/21 20:39 02/26/21 20:39 Labs: Abnormal Lab Results - Last 24 Hours (Table) 02/28/21 02/28/21 02/28/21 Range/Units 00:21 07:09 10:59 POC Glucose (mg/dL) 137 H 254 H (75-99) mg/dL LDL Cholesterol, Calc 135.8 H (0.0-131.0) mg/dL HDL Cholesterol 31.00 L (40.00-60.00) mg/dL 02/28/21 Range/Units 13:32 POC Glucose (mg/dL) 169 H (75-99) mg/dL LDL Cholesterol, Calc (0.0-131.0) mg/dL HDL Cholesterol (40.00-60.00) mg/dL Assessment and Plan Assessment: 1. Visual changes 2. Right upper extremity weakness 3. Severe symptomatic bilateral ICA stenosis, estimated greater than 90% bilaterally per CT angiogram Plan: 1. Recommend aspirin, Plavix, statin 2. Carotid ultrasound reviewed 3. Recommend outpatient trans-carotid artery revascularization if patient a candidate. This will likely be performed next week. The patient is cleared from vascular surgery with follow-up with Dr. Ramirez Thank you for this consultation, and allowing us take part in the plan of care of your patient during his hospital stay. The impression and plan of care has been dictated as directed. Dr. Wright I performed a history and examination of this patient, discussed the same with the dictator. I agree with the dictator's note ,documented as a scribe. Any additional findings or plans will be noted.
== END 2021-02-28 18:54 | disposition home or self-care (01) | DRG 66 ==
LOC: EC 19:34 → 3SCARD 02-27 00:08
PROVIDERS: ADMIT Family Medicine; ATTEND Family Medicine
DX: I63.233 Cerebral infarction due to unspecified occlusion or stenosis of bilateral carotid arteries (principal); J84.10 Pulmonary fibrosis, unspecified; E11.9 Type 2 diabetes mellitus without complications; G83.21 Monoplegia of upper limb affecting right dominant side; Z20.822 Contact with and (suspected) exposure to COVID-19; H53.8 Other visual disturbances; R29.701 NIHSS score 1; I44.0 Atrioventricular block, first degree; I10 Essential (primary) hypertension; N40.0 Benign prostatic hyperplasia without lower urinary tract symptoms; F41.9 Anxiety disorder, unspecified; R91.8 Other nonspecific abnormal finding of lung field; Z79.01 Long term (current) use of anticoagulants; Z79.84 Long term (current) use of oral hypoglycemic drugs; Z79.51 Long term (current) use of inhaled steroids; Z79.899 Other long term (current) drug therapy; Z86.711 Personal history of pulmonary embolism; Z85.51 Personal history of malignant neoplasm of bladder; Z92.21 Personal history of antineoplastic chemotherapy; Z86.73 Personal history of transient ischemic attack (TIA), and cerebral infarction without residual deficits; Z98.890 Other specified postprocedural states
CPT/HCPCS: 36415; 70450; 70496; 70498; 70551; 71046; 80053; 80061; 83036; 84443; 84484; 85025; 85610; 85730; 87635; 93005; 93306; 93880; 94640; 94760; 99285

== ENCOUNTER → 2021-03-13 | Outpatient (CLI) | payer MEDICARE, BC | END | disposition home or self-care (01) | LOC: LABPAT 14:59 | PROVIDERS: ATTEND Surgery | DX: Z01.812 Encounter for preprocedural laboratory examination (principal); I65.29 Occlusion and stenosis of unspecified carotid artery | CPT/HCPCS: 80051; 82565; 84520; 85025; 86850; 86900; 86901 ==

== ENCOUNTER 2021-03-20 09:05 | Inpatient (IN) | payer MEDICARE, BC ==
[2021-03-14 00:04] LABS: African American GFR (CKD) 62.2 (60.0-200.0); Anion Gap 11.3 mmol/L (10.00-18.00); Blood Urea Nitrogen 23.5 mg/dL (9.0-27.0); Carbon Dioxide 23.7 mmol/L (20.0-27.5); Non-African American GFR(CKD) 53.7 (60.0-200.0); Potassium 4.3 mmol/L (3.5-5.5)
[2021-03-14 01:07] LABS: Basophils # (A) 0.07 X 10*3/uL (0.00-0.10); Basophils % (A) 0.6 %; Eosinophils # (A) 1.03 X 10*3/uL (0.04-0.35); Eosinophils % (A) 8.8 %; HCT 39.5 % (39.6-50.0); HGB 12.4 g/dL (13.0-17.0); Immature Grans, Automated 0.6 %; Lymphocytes % (A) 13.6 %; MCH 28.2 pg (27.0-32.0); MCHC 31.4 g/dL (32.0-37.0); MCV 89.8 fL (80.0-97.0); Monocytes # (A) 1.34 X 10*3/uL (0.20-1.00); Monocytes % (A) 11.4 %; NRBC Per 100 WBC 0 /100 WBCS (0.0-0.0); Neutrophils # (A) 7.66 X 10*3/uL (1.80-7.70); Platelet Count 303 X 10*3/uL (140-440); RDW 14.8 % (11.5-14.5); WBC 11.77 X 10*3/uL (4.50-10.00)
[2021-03-16 09:54] VITALS: BMI 28.2
[~2021-03-20 09:05] MED LIST: ALPRAZolam 0.25 MG TAB PO PRN; ALPRAZolam 0.5 MG TAB PO PRN; ASPIRIN 325 MG TAB PO PRN; CLOPIDOGREL 75 MG TAB PO PRN; NITROGLYCERIN SL TABS 0.4 MG TAB SUBLINGUAL PRN; NITROGLYCERIN-D5W PMX 50 MG in DEXTROSE/WATER 1 250ML.BAG IV SCH; RX INFO: IV CONTRAST WAS GIVEN 1 EACH MISC MISCELLANE PRN; SODIUM CHLORIDE 0.9% 1,000 ML in EMPTY BAG 1 BAG IV ONE; ceFAZolin 2 GM in SODIUM CHLORIDE 0.9% 500 ML 500 ML IRRIGATION PRN
[2021-03-20] MEDS ORDERED: SODIUM CHLORIDE 0.9% 1,000 ML IV ONE (09:26)
[2021-03-20 09:52] LABS: Glucose,Whole Blood 117 mg/dL (75-99)
[2021-03-20] MEDS ORDERED: LIDOCAINE 1% INJ 10MG/ML (20 ML MDV) ONE (09:53)
[2021-03-20] MEDS ORDERED: HEPARIN SODIUM,PORCINE 10,000 UNIT/ML 1 ML VIAL ONE (10:28)
[2021-03-20] MEDS ORDERED: fentaNYL (PF) 50 MCG/ML 2 ML AMP ONE (10:28)
[2021-03-20] MEDS ORDERED: DEXMEDETOMIDINE/0.9% NACL(PMX) 400 MCG/100 ML IV ONE (10:28)
[2021-03-20] MEDS ORDERED: PHENYLEPHRINE-0.9% NACL SYG 1,000 MCG/10 ML SYRINGE ONE (10:28)
[2021-03-20] MEDS ORDERED: PROTAMINE SULFATE 10 MG/ML 5 ML VIAL IV ONE (10:28)
[2021-03-20] MEDS ORDERED: ePHEDrine 50 MG/ML 1 ML AMP ONE (10:28)
[2021-03-20] MEDS ORDERED: GLYCOPYRROLATE 0.2 MG/ML 2 ML VIAL ONE (10:28)
[2021-03-20] MEDS ORDERED: LIDOCAINE 1% INJ 10MG/ML (20 ML MDV) SQ ONE (10:54)
[2021-03-20] MEDS ORDERED: IOPAMIDOL-370 50ML BTL INJ ONE (12:38)
--- NOTE | 2021-03-20 12:53 | P.OP ---
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 Due to his age and concomitant right-sided stenosis he is a candidate for such procedure. Operative narrative: After written and informed consent was obtained the patient all risks benefits and competitions were described the patient was brought to the [employer] and laid in a supine position. The area of the neck and groins were prepped and draped in usual sterile fashion after appropriate anesthetic was performed per the anesthesiologist. A timeout was performed in normal fashion and antibiotics were administered prior to incision. Utilizing ultrasound the left common carotid artery was located and a transverse incision was created overlying this area. Dissection was carried between the sternocleidomastoid musculature down to the carotid sheath. The sheath was then incised and the common carotid artery was located and dissected free in a circumferential manner and controlled with umbilical tape. Once controlled attention was placed down to the common femoral vein on the right and utilizing ultrasound the vein was cannulated and the 8-Gambian sheath was placed in normal fashion. Attention was then placed back to the carotid artery and the patient was administered heparin and followed with ACTs and redosed as needed for ACT above 200. A pursestring suture was then placed at the common carotid artery with 6-0 Prolene and utilizing a multipurpose needle the common carotid artery was accessed and wire was placed followed by a 4-Gambian sheath. Carotid angiogram was then obtained demonstrating significant stenosis greater than 80% in the internal carotid artery. Stiff wire was then placed followed by the 8 [place] Silkroad sheath. Flow reversal was then established with the enDelyte RED LEAD BURNER system after patient's blood pressure was increased to above 160, heart rate above 60 and ACT above 250. 014 wire was then placed across the lesion followed by a 5.5 mm x 30mm balloon and balloon angioplasty was performed followed by an 10 x 40 mm Silkroad stent. Postdilatation was not performed and final angiogram was obtained demonstrating complete resolution of the stenosis. All guidewires and catheters were removed and the sheath was removed and the arteriotomy was secured with the previously placed pursestring suture. Hemostasis was assured with Gelfoam and thrombin. The femoral sheath was also removed and pressure was held for hemostasis. The patient all procedure well and was moving all extremities and following commands. She was then sent to PACU for recovery.
[2021-03-20] MEDS ORDERED: MAG HYDROX/AL HYDROX/SIMETH 30 ML CUP PO PRN (12:54)
[2021-03-20] MEDS ORDERED: ATROPINE SULFATE 0.1 MG/ML 10ML SYRINGE IV PRN (12:54)
--- NOTE | 2021-03-20 13:04 | IR ---
EXAMINATION TYPE: IR stent intravas non coronary DATE OF EXAM: 03/20/2021 COMPARISON: NONE HISTORY: Fluoroscopy time. Fluoroscopy was provided to the referring clinician.
[2021-03-20] MEDS: PHENYLEPHRINE 40 MG in SODIUM CHLORIDE 0.9% 250 ML IV SCH ×6 (13:08→14:33)
[2021-03-20 13:49] LABS: Glucose,Whole Blood 167 mg/dL (75-99)
[2021-03-20 15:57] LABS: Glucose,Whole Blood 148 mg/dL (75-99)
[2021-03-20] MEDS: SODIUM CHLORIDE 0.9% 1,000 ML IV SCH ×2 (16:00→23:15)
[2021-03-20] MEDS ORDERED: MORPHINE SULFATE 2 MG/ML SYRINGE IVP PRN (16:21)
[2021-03-20] MEDS ORDERED: HYDROcodone/APAP 5-325MG 1 EACH TAB PO PRN (16:22)
[2021-03-20] MEDS: DEXMEDETOMIDINE/0.9% NACL(PMX) 400 MCG in EMPTY BAG 1 BAG IV SCH (18:16)
[2021-03-20] MEDS: INSULIN ASPART (NovoLOG) 100 UNIT/ML VIAL SQ SCH ×2 (18:18→20:54)
[2021-03-20] MEDS: SYMBICORT 80-4.5 MCG INHALER INHALATION SCH (20:40)
[2021-03-20 20:50] LABS: Glucose,Whole Blood 164 mg/dL (75-99)
[2021-03-20] MEDS ORDERED: ATORVASTATIN 40 MG TAB PO SCH (21:00)
[2021-03-20] MEDS ORDERED: TAMSULOSIN 0.4 MG CAP.ER.24H PO SCH (21:00)
[2021-03-20] MEDS ORDERED: LORATADINE 10 MG TAB PO SCH (21:00)
[2021-03-20] MEDS: guaiFENesin-DM 100-10MG/5ML 10 ML CUP PO PRN (23:07)
[2021-03-21 04:22] LABS: Basophils # (A) 0.1 k/uL (0-0.2); Basophils % (A) 1 %; Eosinophils # (A) 0.8 k/uL (0-0.7); Eosinophils % (A) 6 %; HCT 34.6 % (39.0-53.0); HGB 11.4 gm/dL (13.0-17.5); Lymphocytes # (A) 1.8 k/uL (1.0-4.8); Lymphocytes % (A) 13 %; MCH 29.5 pg (25.0-35.0); MCV 89.6 fL (80.0-100.0); Mean Platelet Volume 7.7; Monocytes # (A) 1.1 k/uL (0-1.0); Monocytes % (A) 8 %; Neutrophils # (A) 9.7 k/uL (1.3-7.7); Neutrophils % (A) 71 %; Platelet Count 280 k/uL (150-450); RBC 3.87 m/uL (4.30-5.90); WBC 13.7 k/uL (3.8-10.6)
[2021-03-21 04:32] LABS: Calcium 8.6 mg/dL (8.4-10.2); Potassium 4.1 mmol/L (3.5-5.1)
[2021-03-21] MEDS: DEXMEDETOMIDINE/0.9% NACL(PMX) 400 MCG in EMPTY BAG 1 BAG IV SCH (05:31)
[2021-03-21] MEDS: guaiFENesin-DM 100-10MG/5ML 10 ML CUP PO PRN (05:51)
[2021-03-21 07:28] LABS: Glucose,Whole Blood 171 mg/dL (75-99)
[2021-03-21] MEDS: SYMBICORT 80-4.5 MCG INHALER INHALATION SCH (08:02)
[2021-03-21 08:38] VITALS: TEMP 97.7
[2021-03-21 08:48] LABS: Glucose,Whole Blood 267 mg/dL (75-99)
[2021-03-21] MEDS: INSULIN ASPART (NovoLOG) 100 UNIT/ML VIAL SQ SCH ×2 (08:51→13:37)
[2021-03-21] MEDS ORDERED: CLOPIDOGREL 75 MG TAB PO SCH (09:00)
[2021-03-21] MEDS ORDERED: ASPIRIN 325 MG TAB PO SCH (09:00)
--- NOTE | 2021-03-21 09:52 | P.DS ---
Providers Date of admission: 03/20/21 09:05 Expected date of discharge: 03/21/21 Attending physician: Ras Ramirez DO Primary care physician: Physician Nonstaff Hospital Course: Discharge diagnosis: 1. Symptomatic left internal carotid artery stenosis greater than 90% 2. Left trans-carotid artery revascularization with stenting This is an 89-year-old male with a history for recent hospitalization for TIA findings of severe symptomatic carotid stenosis. The patient is postop day #1 for left trans-carotid artery revascularization with stenting with ultrasound- guided right common femoral vein access. He is seen and examined in the ICU. He denies any focal deficits. He is alert and oriented 3. States pain has been well-controlled. Blood pressure has been a little bit on the lower side and he has required Darrin-synephrine which they are currently weaning down. He ate his breakfast this morning and tolerated it without any nausea or vomiting. He denies any chest pain or shortness of breath. Incision to the left side of the neck is clean dry and intact and well approximated without any signs of bleeding or hematoma. Right groin access site is intact, no bleeding, no hematoma noted. Patient's afebrile. Hemoglobin stable 11.4 Plan: 1. Increase ambulation 2. Plan for discharge later this afternoon if patient is able to be weaned off and medial and blood pressure is stable 3. Continue current medications 4. Follow-up with Dr. Ramirez in 10-14 days The impression and plan of care has been dictated as directed. Dr. Wright I performed a history and examination of this patient, discussed the same with the dictator. I agree with the dictator's note ,documented as a scribe. Any additional findings or plans will be noted. Patient Condition at Discharge: Stable Plan - Discharge Summary Discharge Rx Participant: No New Discharge Prescriptions: No Action Tamsulosin HCl [Flomax] 0.4 mg PO HS metFORMIN HCL [Glucophage] 500 mg PO BID glipiZIDE [Glucotrol] 5 mg PO BID-W/MEALS Aspirin 325 mg PO DAILY 90 Days #90 tab Atorvastatin [Lipitor] 80 mg PO DAILY 90 Days #90 tab Loratadine [Claritin] 10 mg PO HS Fluticasone Propion/Salmeterol [Wixela 250-50 Inhub] 1 puff INHALATION RT-BID Clopidogrel [Plavix] 75 mg PO DAILY 90 Days #90 tab Discharge Medication List Fluticasone Propion/Salmeterol [Wixela 250-50 Inhub] 1 puff INHALATION RT-BID 02/26/21 [History] Loratadine [Claritin] 10 mg PO HS 02/26/21 [History] Tamsulosin HCl [Flomax] 0.4 mg PO HS 02/26/21 [History] glipiZIDE [Glucotrol] 5 mg PO BID-W/MEALS 02/26/21 [History] metFORMIN HCL [Glucophage] 500 mg PO BID 02/26/21 [History] Aspirin 325 mg PO DAILY 90 Days #90 tab 02/28/21 [Rx] Atorvastatin [Lipitor] 80 mg PO DAILY 90 Days #90 tab 02/28/21 [Rx] Clopidogrel [Plavix] 75 mg PO DAILY 90 Days #90 tab 02/28/21 [Rx] Follow up Appointment(s)/Referral(s): Ras Ramirez DO [STAFF PHYSICIAN] - 04/03/21 3:15 pm
[2021-03-21 13:30] LABS: Glucose,Whole Blood 361 mg/dL (75-99)
[2021-03-21] MEDS: PHENYLEPHRINE 40 MG in SODIUM CHLORIDE 0.9% 250 ML IV SCH (13:31)
[2021-03-21 16:24] VITALS: BP 115/57; PULSE 70; RESP 16
== END 2021-03-21 16:50 | disposition home health service (06) | DRG 36 ==
LOC: 2ORMAIN 09:05 → 2SICU 15:21
PROVIDERS: ADMIT Surgery; ATTEND Surgery
PROC: X2AJ336 Cerebral Embolic Filtration, Extracorporeal Flow Reversal Circuit from Left Common Carotid Artery, Percutaneous Approach, New Technology Group 6 (ICD-10-PCS; principal; 2021-03-20 10:30)
PROC: 037L3DZ Dilation of Left Internal Carotid Artery with Intraluminal Device, Percutaneous Approach (ICD-10-PCS; principal; 2021-03-20 10:30)
DX: I65.22 Occlusion and stenosis of left carotid artery (principal); J84.10 Pulmonary fibrosis, unspecified; E11.9 Type 2 diabetes mellitus without complications; J44.9 Chronic obstructive pulmonary disease, unspecified; Z20.822 Contact with and (suspected) exposure to COVID-19; I65.21 Occlusion and stenosis of right carotid artery; N40.0 Benign prostatic hyperplasia without lower urinary tract symptoms; Z79.84 Long term (current) use of oral hypoglycemic drugs; Z79.02 Long term (current) use of antithrombotics/antiplatelets; Z79.82 Long term (current) use of aspirin; Z79.51 Long term (current) use of inhaled steroids; Z79.899 Other long term (current) drug therapy; Z87.891 Personal history of nicotine dependence; Z85.51 Personal history of malignant neoplasm of bladder; Z86.711 Personal history of pulmonary embolism; Z92.21 Personal history of antineoplastic chemotherapy; Z82.49 Family history of ischemic heart disease and other diseases of the circulatory system; Z82.3 Family history of stroke
CPT/HCPCS: 37215; 80048; 80051; 82565; 84520; 85025; 86850; 86900; 86901; 87635; 94640